=== PATIENT | female | born 1985 | race Caucasian/White ===

== ENCOUNTER 2017-09-26 12:19 | Emergency (ER) | payer OTHER, SELFPAY ==
[2017-09-26] MEDS ORDERED: Ketorolac Tromethamine 30 MG/ML VIAL ONE ×2 (13:19→13:57)
== END 2017-09-26 14:16 | disposition home or self-care (01) ==
LOC: ERS 12:19
DX: H66.93 Otitis media, unspecified, bilateral (principal); J06.9 Acute upper respiratory infection, unspecified; F17.210 Nicotine dependence, cigarettes, uncomplicated
CPT/HCPCS: 96372; J1885

== ENCOUNTER 2019-09-18 01:23 | Emergency (ER) | payer SELFPAY | END 2019-09-18 02:09 | disposition home or self-care (01) | LOC: ERS 01:23 | DX: J06.9 Acute upper respiratory infection, unspecified (principal); F17.210 Nicotine dependence, cigarettes, uncomplicated | CPT/HCPCS: 99283 ==